=== PATIENT | female | born 1960 | race Two or more races ===

== ENCOUNTER 2024-04-24 10:44 | Emergency (ER) | payer OTHER ==
[~2024-04-24] VITALS: Ht 149.9 cm; Wt 63.5 kg
[2024-04-24] MEDS ORDERED: LETAIRIS10 MG (11:15)
[2024-04-24] MEDS ORDERED: RALOXIFENE HCL60 MG PO (11:15)
[2024-04-24] MEDS ORDERED: CRESTOR40 MG (11:16)
[2024-04-24] MEDS ORDERED: VASOTEC5 MG PO (11:16)
[2024-04-24] MEDS ORDERED: KETOROLAC TROMETHAMINE 60 MG VIAL IM STA (13:34)
[2024-04-24] MEDS ORDERED: KETOROLAC TROMETHAMINE 60 MG VIAL IM ONE (13:39)
== END 2024-04-24 16:40 | disposition home or self-care (01) ==
LOC: ER 10:46
DX: S73.192A Other sprain of left hip, initial encounter (principal); I10 Essential (primary) hypertension